=== PATIENT | female | born 1980 | race Caucasian/White ===

== ENCOUNTER 2025-04-19 16:15 | Inpatient (IN) | payer OTHER, SELFPAY ==
[2025-04-19] VITALS (15 sets, daily range): BP systolic 126–160; BP diastolic 68–109; BMI 28.0; BMI 24.9
[2025-04-19 12:17] LABS: Hematocrit 36.1 % (37.0-47.0); Hemoglobin 12.4 g/dL (12.0-16.0); Mean Corp Hgb Conc. 34.3 g/dL (33.0-37.0); Mean Corpuscular Volume 87.2 fL (81.0-99.0); Nucleated Red Blood Cells % 0 %; Platelet Count 274 10^3/uL (130-400); Red Cell Dist. Width 12.0 % (11.5-14.5)
--- NOTE | 2025-04-19 12:30 | ED.GENMED ---
History of Present Illness
General
Chief Complaint: Withdrawal Symptoms
Time Seen by Provider: 04/19/25 12:30
History of Present Illness
History of Present Illness:
PAST MEDICAL HISTORY AND REVIEW OF OLD RECORDS
- Patient has a history of alcohol and heroin abuse. I reviewed records, the patient was seen here after right eye injury in 2012.
Note:
CHIEF COMPLAINT(S)
Chest pain.
HISTORY OF PRESENT ILLNESS
The patient is a 44-year-old female who presented with chest pain. She reported last using alcohol and heroin approximately 24 hours prior to arrival. She has a daily history of both alcohol and heroin use. The patient described her symptoms as
including severe nausea and vomiting, in addition to chest pain. She reported new-onset visual disturbances, describing 'trails of light.' The patient also reported a mild headache, feelings of nervousness, restlessness, and described sensory
changes such as pins and needles. She was unable to accurately identify the current hospital or the correct month, indicating possible disorientation. There is no report of sweating, runny nose, or general achiness.
REVIEW OF SYSTEMS
- Gastrointestinal: Severe nausea, reported vomiting.
- Neurological: Mild headache, described visual disturbances with 'trails of light.'
- Psychological: Nervousness, fidgetiness, restlessness.
- Sensory: Pins and needles sensation.
PHYSICAL EXAM
General: Alert, but appears somewhat uncomfortable
Skin: Warm, dry.
Head: Normocephalic, atraumatic.
Neck: Supple, trachea midline.
Eyes, Ears, Nose, Mouth, and Throat: Pupils are mid dilated
Cardiovascular: Normal peripheral perfusion, No edema. Borderline tachycardic, 2 out of 6 systolic murmur heard diffusely
Respiratory: Respirations are non-labored.
Gastrointestinal: Abdomen nondistended.
Back: Normal range of motion, Normal alignment.
Musculoskeletal: Normal range of motion, normal strength.
Neurological: Alert but cannot tell me what day it is or what hospital she is at
Psychiatric: Cooperative, depressed affect
PLAN
Evaluation and management of withdrawal symptoms by consulting the appropriate team for withdrawal management.
DIFFERENTIAL DIAGNOSIS
The Differential Diagnosis includes, in no particular order and is not limited to:
1. Alcohol withdrawal
2. Opioid withdrawal
3. Myocardial infarction
4. Pneumonia
5. Gastroesophageal reflux disease
6. Panic disorder
7. Peptic ulcer disease
8. Aortic dissection
9. Pulmonary embolism
10. Hypertensive crisis
EKG
- Sinus 74, normal axis, nonspecific ST abnormality, no old to compare, LAE
LABS
- White count and hemoglobin are normal, potassium 3.0, creatinine normal, hCG negative
UPDATE
-SUMMARY OF ENCOUNTER
The patient is a 44-year-old female who presented to the emergency department with chest pain, severe nausea, vomiting, visual disturbances ('trails of light'), pins and needles sensation, restlessness, and disorientation. She has a history of daily
alcohol and heroin use, with her last reported use approximately 24 hours prior to arrival. Given her symptoms and history, there is concern for withdrawal from both alcohol and opioids. Her symptoms and clinical presentation indicate the need for
in-hospital management and withdrawal treatment.
On reassessment, the patient has become more agitated and more tachycardic despite receiving Valium, Belbuca, tizanidine, oxycodone, IV fluids, and Zofran. I discussed case with pharmacy. BCALUIS ANTONIO also evaluated the patient and agrees it would be
safest for patient to be kept in the hospital as opposed to returning to custodial.
ASSESSMENT
The patient is experiencing symptoms consistent with withdrawal from both alcohol and opioids. Comprehensive management in the hospital setting is warranted due to the potential severity and complications associated with dual substance withdrawal.
PLAN
The plan involves in-hospital management of withdrawal symptoms to ensure patient safety. It is being considered whether this management can be done in a specialized facility or requires continued hospital monitoring.
MEDICAL DECISION MAKING
- Number and Complexity of Problems Addressed: Chronic conditions affecting care include alcohol and heroin use. Differential diagnosis includes alcohol withdrawal, opioid withdrawal, and other potential acute conditions such as myocardial
infarction or pulmonary embolism.
- Data:
Category 3:
Discussion of management was held with the consulting team to evaluate the best setting for managing the patients withdrawal symptoms, whether in a specialized facility or the hospital.
-Risk:
Consideration of Admission/Observation: Given the complexity and risk related to the patients presenting complaint, underlying substance use, and symptoms, the decision to keep the patient in the hospital for further withdrawal management is
prioritized. Care significantly affected by Social Determinants of Health includes the patients substance use disorder.
DIAGNOSIS
1. Alcohol withdrawal (F10.239)
2. Opioid withdrawal (F11.23)
Past History
Past History
ED Past Medical History: Other; Negative Asthma, HTN, Hypercholesterolemia or NIDDM
ED Past Surgical History: None
Social History
Tobacco: Non-smoker
Alcohol: Occasional
Drug: Former user (patient on Methadone)
Personal: Single
Living: with family
Phy Exam
Physical Exam
Physical Exam:
See HPI
Course
Orders/Labs/Results
Orders:
Orders
04/19/25
Electrocardiogram (*1) Stat
Reason for Study: Chest Pain
Comment: DONE
04/19/25 11:56
ECG [Electrocardiogram (*1)] Urgent
Reason for Study: Chest Pain
EKG- Treatment ONCE
04/19/25 11:57
Test Result ONCE
04/19/25 12:02
Complete Blood Count/With Diff Urgent
04/19/25 12:37
0.9% Sodium Chloride 1000 ml [Nss] 1,000 ml IV BOLUS
Acetaminophen [Tylenol] 1,000 mg PO NOW STA
Clonidine [Catapres] 0.1 mg PO NOW STA
Ketorolac [Toradol] 15 mg IV NOW STA
Ondansetron Injectable [Zofran] 4 mg IV NOW STA
04/19/25 12:42
Comprehensive Metabolic Panel Urgent
HCG, Serum Qualitative Screen Urgent
Lipase Urgent
Magnesium Urgent
Comment: ADD ON
Troponin I Urgent
04/19/25 12:45
Add On- LAB Urgent
Tests Added?: hcg qual
Urine Drug Abuse Screen Urgent
Buprenorphine HCl [Belbuca] 300 mcg BUCCAL BID
04/19/25 13:17
Add On- LAB Urgent
Tests Added?: magnesium
04/19/25 13:39
Potassium Chloride [KCl] 40 meq 0.9% Sodium Chloride 250 ml [Nss] 250 ml IV NOW
04/19/25 14:13
diazePAM [Valium Injection] 10 mg IV NOW STA
04/19/25 14:48
Oxycodone Controlled Release [Oxycontin (Controlled Release)] 40 mg PO NOW STA
04/19/25 14:53
Tizanidine [Zanaflex] 2 mg PO NOW STA
Abnormal Lab Results
04/19/25 04/19/25
12:02 12:42
RBC 4.14 L 10^6/uL
(4.20-5.40)
Hct 36.1 L %
(37.0-47.0)
Absolute Neuts (auto) 6.7 H 10^3/uL
(1.4-6.5)
Absolute Lymphs (auto) 0.8 L 10^3/uL
(1.2-3.4)
Neutrophils % 85.1 H %
(42.2-75.2)
Lymphocytes % 9.9 L %
(20.5-51.1)
Potassium 3.0 L mmol/L
(3.5-5.1)
BUN 6 L mg/dl
(7-17)
Creatinine 0.5 L mg/dL
(0.6-1.0)
Glucose 106 H mg/dl
(70-99)
Total Protein 6.1 L g/dl
(6.3-8.2)
04/19/25 12:02
04/19/25 12:42
Vital Signs
Pulse: 110
Initial and Last Documented VS:
Initial Vital Signs
Temp Pulse Resp BP Pulse Ox
36.8 C 79 20 142/86 98
04/19/25 11:53 04/19/25 11:53 04/19/25 11:53 04/19/25 11:53 04/19/25 11:53
Last Documented Vital Signs
Temp Pulse Resp BP Pulse Ox
36.8 C 110 27 143/85 98
04/19/25 11:53 04/19/25 15:02 04/19/25 14:00 04/19/25 14:00 04/19/25 14:00
*Pulse Oximetry
SaO2: 98
Oxygen Mode of Delivery: Room air
Patient hypoxic: no
*Critical Care Note
Total Time (30-74mins, 75-104mins- exclusive of procedures): Not Applicable
ED Attending Note
-
Portions of this chart may have been created with voice recognition software.� Occasional wrong word or��sound alike� substitutions may have occurred due to the inherent limitations of voice recognition software.
Discharge Plan
Departure
Patient Disposition: Admit
Date of Disposition: 04/19/25
Time of Disposition: 15:03
Presentation/result/management discussed w/ accepting MD/DO: Hospitalist
Discharge Problem:
Withdrawal syndrome
Prescriptions:
No Action
quetiapine [Seroquel] 25 mg Tablet
25 mg PO DAILY
ascorbic acid (vitamin C) [Vitamin C] 1,000 mg Tablet
1,000 mg PO BID
clonidine HCl 0.1 mg Tablet
0.1 mg PO DIRECTED
Rx Instructions:
0.1mg tid on 04/19/25-04/22/25 then 0.1mg bid on 04/23/25-04/24/25 then 0.5mg bid on04/25/25-04/26/25
ondansetron HCl [Zofran] 4 mg Tablet
4 mg PO TIDPRN PRN (Reason: nausea)
loperamide 2 mg Tablet
2 mg PO TIDPRN PRN (Reason: diarrhea)
thiamine HCl (vitamin B1) 100 mg Tablet
100 mg PO DAILY
Theragen Tablet
1 tab PO DAILY
acetaminophen-codeine 300-30 mg Tablet
1 tab PO DIRECTED
Rx Instructions:
take 2 tablets tid on 04/19/25-04/21/25 then 2 tablets bid on 04/22/25-04/23/25 then 1 tablets bid on 04/24/25-04/25/25
diphenhydramine HCl [Benadryl] 25 mg Capsule
25 mg PO BID
clonazepam 2 mg Tablet
2 mg PO DIRECTED
Rx Instructions:
take 2mg bid on 04/19/25-04/21/25 then 1mg tid on 04/22/25-04/23/25 then 1mg bid on 04/24/25-04/25/25 then 0.5mg bid on 04/26/25-04/27/25 then 0.5mg daily on 04/28/25
folic acid 1 mg Tablet
1 mg PO DAILY
quetiapine [Seroquel] 50 mg Tablet
50 mg PO HS
magnesium oxide 400 mg magnesium Tablet
400 mg PO DAILY
Referrals:
[facility] [Family Provider, General]
Interventions
Interventions:
*Risk Screen - Suicide Last Done: 04/19/25 12:25
*General Assessment Last Done: 04/19/25 12:25
*Neglect/Abuse Screening Last Done: 04/19/25 12:25
*ED- Fall Risk Assessment Last Done: 04/19/25 12:25
*ED COVID-19 Vaccine History Last Done: 04/19/25 12:25
ED- Cardiac Assessment Last Done: 04/19/25 12:30
ED- Neurological Assessment Last Done: 04/19/25 12:30
ED-Psychological Assessment Last Done: 04/19/25 12:30
Discharge Date and Time
Print Language: LATVIAN
[2025-04-19 13:14] LABS: HCG, Serum Qualitative Screen Negative
[2025-04-19 13:15] LABS: ALT (SGPT) 21 U/L (0-35); AST (SGOT) 22 U/L (14-36); Albumin 3.6 g/dl (3.5-5.0); Alkaline Phosphatase 50 U/L (38-126); Blood Urea Nitrogen 6 mg/dl (7-17); Calcium 8.8 mg/dl (8.4-10.2); Carbon Dioxide 27 mmol/L (22-30); Chloride 107 mmol/L (98-107); Estimated Creatinine Clearance 107 ml/min; Glucose 106 mg/dl (70-99); Lipase 77 U/L (23-300); Potassium 3.0 mmol/L (3.5-5.1); Sodium 141 mmol/L (135-145); Total Protein 6.1 g/dl (6.3-8.2); eGFR > 60.00
[2025-04-19] MEDS: BELBUCA 300 MCG BUCCAL ×3 (13:15→21:04)
[2025-04-19 13:18] LABS: Troponin I 0.016 ng/ml
[2025-04-19] MEDS: NSS 1000 IV ×3 (13:20→22:48)
[2025-04-19] MEDS: TORADOL 15 MG IV (13:23)
[2025-04-19] MEDS: ZOFRAN 4 MG IV (13:24)
[2025-04-19] MEDS: CATAPRES 0.1 MG PO (13:26)
[2025-04-19] MEDS: TYLENOL 1000 MG PO (13:27)
--- NOTE | 2025-04-19 13:33 | EDRN ---
Pharmacist called to send potassium IV as ordered.
[2025-04-19 13:34] LABS: Magnesium 1.7 mg/dl (1.6-2.3)
--- NOTE | 2025-04-19 13:45 | EDRN ---
Pt moved to room #18 for better visualization of pt. Pt is in full withdrawal
--- NOTE | 2025-04-19 13:55 | EDRN ---
Luiz from [facility] notified of change of room at this itme.
[2025-04-19] MEDS: KCL 270 MEQ IV (14:02)
[2025-04-19] MEDS: VALIUM INJECTION 10 MG IV (14:50)
[2025-04-19] MEDS: ZANAFLEX 2 MG PO (15:04)
[2025-04-19] MEDS: OXYCONTIN (CONTROLLED RELEASE) 40 MG PO (15:04)
--- NOTE | 2025-04-19 15:05 | HPS.HSE ---
Family Physician
-
Family Physician: Facility [facility]
Chief Complaint
-
withdraw symptoms
History of Present Illness
Patient is a 44-year-old female with past medical history significant for alcohol abuse and heroin abuse who presented to [facility] ED from [facility] for evaluation of chest pain. Patient complains of withdraw symptoms and denies chest pains to this provider.
Patient reports that last use was yesterday of alcohol, fentanyl and meth. She currently is complaining of pain (does not identify a specific location) nausea and of hot and cold fluctuations. Nurse reports patient was with tremor prior to
medication. She is AAO for this provider able to say name, , month and that she currently is in the hospital. She reports use of 1 pint of vodka daily, 1 bag of meth and 6 bags of Fentanyl all last used yesterday.
Medical History
Past Medical History
Past Medical History: Reports Other
Additional Past Medical History:
alcohol abuse
heroin abuse
meth abuse
Past Surgical History: Reports Other
Additional Past Surgical History:
Social History
Tobacco: Smoker (pack per day, with 29 pack year history )
Alcohol: Daily (1 pint of vodka)
Drug: Narcotics (meth 1 bag daily ) and IVDA (6 bag fentanyl daily )
Living: With Family
Family History
Family History: Not pertinent
Allergies / Home Medications
Allergies reflects when Allergies were last updated in [facility].
Home Medications with original date entered in [facility]
Allergy/Medication List:
Allergies
Allergy/AdvReac Type Severity Reaction Status Date / Time
Penicillins Allergy Unknown Verified 02/18/13 20:16
Home Medications
acetaminophen 300 mg-codeine 30 mg tablet 1 tab PO DIRECTED 04/19/25
ascorbic acid (vitamin C) 1,000 mg tablet (Vitamin C) 1,000 mg PO BID 04/19/25
clonazepam 2 mg tablet 2 mg PO DIRECTED 04/19/25
clonidine HCl 0.1 mg tablet 0.1 mg PO DIRECTED 04/19/25
diphenhydramine HCl 25 mg capsule (Benadryl) 25 mg PO BID 04/19/25
folic acid 1 mg tablet 1 mg PO DAILY 04/19/25
loperamide 2 mg tablet 2 mg PO TIDPRN PRN diarrhea 04/19/25
magnesium oxide 400 mg PO DAILY 04/19/25
ondansetron HCl 4 mg tablet 4 mg PO TIDPRN PRN nausea 04/19/25
quetiapine 25 mg tablet (Seroquel) 25 mg PO DAILY 04/19/25
quetiapine 50 mg tablet (Seroquel) 50 mg PO HS 04/19/25
therapeutic multivitamin 1 tab PO DAILY 04/19/25
thiamine HCl (vitamin B1) 100 mg tablet 100 mg PO DAILY 04/19/25
Review of Systems
-
History Source: Patient
Constitutional: Reports Night Sweats, Chills and Other (generalized pain )
EENT: Reports No Symptoms
Respiratory: Reports No Symptoms
Cardiac: Reports Diaphoresis
Abdomen/GI: Reports Nausea
: Reports No Symptoms
Musculoskeletal: Reports No Symptoms
Skin: Reports No Symptoms
Neurological: Reports No Symptoms
Endocrine: Reports No Symptoms
Hematologic/Lymphatic: Reports No Symptoms
Psych: Reports No Symptoms
Physical Exam
Vital Signs
Vital Signs
Temp Pulse Resp BP Pulse Ox
98.3 F 110 27 143/85 98
04/19/25 11:53 04/19/25 15:02 04/19/25 14:00 04/19/25 14:00 04/19/25 14:00
Physical Exam
General: Well Developed, Well Nourished, No Apparent Distress and Obese
HEENT: NormoCephalic, Moist mucous membranes and Atraumatic
Respiratory: Clear and Non Labored Respirations
Cardiac: S1/S2, Regular Rhythm and Murmur; No Rub or Gallop
Breast: Deferred by me
GI: Soft, Non Tender, Non Distended and Normal Bowel Sounds; No Organomegaly
Rectal: Deferred by Provider
Genito-urinary: Deferred by me
Musculoskeletal: No Clubbing, No Cyanosis and No Edema
Skin: Warm and IV/Catheter Site
Neuro: Awake, AO x 3 and Nonfocal/grossly intact
Hematologic/Lymphatic: No Lymphadenopathy
Psych: Other (restlessness)
Laboratory Results
-
04/19/25 12:02
04/19/25 12:42
Laboratory Results
Total Bilirubin 0.7 mg/dl (0.2-1.3) 04/19/25 12:42
AST 22 U/L (14-36) 04/19/25 12:42
ALT 21 U/L (0-35) 04/19/25 12:42
Alkaline Phosphatase 50 U/L (38-126) 04/19/25 12:42
Troponin I 0.016 ng/ml 04/19/25 12:42
Lipase Cancelled 04/19/25 12:45
Data Reviewed
-
Medical Tests (Nuc Med, Echo, EKG etc): Report Reviewed by me (EKG: NORMAL SINUS RHYTHM POSSIBLE LEFT ATRIAL ENLARGEMENT)
Lab Data: Labs Reviewed by me
Impression/Plan
-
IMPRESSION/PLAN:
#opiate withdraw
#alcohol withdraw
EKG: NORMAL SINUS RHYTHM
POSSIBLE LEFT ATRIAL ENLARGEMENT
- Admit to telemetry
- MSAS protocol
- COWS protocol
- supportive care
- monitor electrolytes and replete as indicated
#alcohol abuse
#heroin abuse
Code status: full code
DVT prophylaxis: Lovenox sq
--- NOTE | 2025-04-19 15:25 | EDRN ---
Pt on bedpan attempting urine sample at this time.
--- NOTE | 2025-04-19 15:26 | W.PN.UPDATE ---
Addendum entered and electronically signed by Demetrice Coto MD 04/19/25 16:08:
given patient will be on microdosing protocol with standing oxycodone will closely monitor in IMU
Original Note:
Update Note
Progress Note Update
This is an addendum for H&P written by CODING SUPPORT SPECIALIST Amy Reynoso
I saw and examined the patient.
The CODING SUPPORT SPECIALIST's note was reviewed and I agree with the note.
Comment:
Ms. Suzie Wang is a 44 yo woman with hx alcohol and heroin use presents tot he ER with chest pain, nervousness and restlessness as well as feeling of pins and needles.
Triage VS: T 36.8 C, P 79, RR 20, BP 142/86, SpO2 98%
On exam patient appears uncomfortable, no tremors, she is conversant. Lungs clear, no LE swelling.
LABS: WBC 7.9, Hg 12.4, PLT 274, Na 141, K+ 3.0, CO2 27, BUN 6, Cr 0.5, Glucose 106, liver enzymes WNL, Trop 0.016
HCG negative
MAR: buprenorphine 300mcg clonidine, Valium, Toradol, Zofran, Oxycodone 40mg PO x 1, IV potassium, Zanaflex 2mg PO x 1
Opiate Withdrawal
-admit to telemetry
-awaiting UTox
-microdosing order set with standing low dose buprenorphine, and standing oxycodone with taper
-Clonidine and Zanaflex PRN
-seen by SHALOM, unable to follow up as patient is a prisoner at [facility]
Alcohol Withdrawal
-MSAS protocol
-monitor electrolytes
-IVF
Hypokalemia
-replete and repeat this evening
Remainder of plan per CODING SUPPORT SPECIALIST note
76 minutes spent on patient care
--- NOTE | 2025-04-19 15:36 | EDRN ---
Reuben Reynoso RELAY TESTER In to see pt. Pt voided on bedpan w/ urine sample obtained and sent.
--- NOTE | 2025-04-19 15:39 | EDRN ---
Dr. Coto in room w/ pt at this time.
--- NOTE | 2025-04-19 16:47 | EDRN ---
Report called to Nadia VILLANUEVA in IMU at this time.
[2025-04-19 17:12] LABS: Urine Character Clear (Clear)
[2025-04-19] MEDS: LOVENOX 40 MG SC (17:36)
--- NOTE | 2025-04-19 17:51 | PTCARENOTE ---
Pt from Er with 2 guards R foot shackled to bed. Withdraw from Opiates and alcohol. Pt AAOx3 tremors no teeth. K francisco running in R hand INT.
[2025-04-19] MEDS: ATIVAN 1 MG PO ×2 (18:11→21:23)
[2025-04-19 18:18] LABS: GGTP 14 U/L (12-43)
[2025-04-19] MEDS: THIAMINE INJECTION 200 MG IV (21:04)
[2025-04-19] MEDS: SEROQUEL 50 MG PO (21:04)
[2025-04-19] MEDS: VALIUM INJECTION 5 MG IV (23:24)
[2025-04-20] VITALS (12 sets, daily range): BP systolic 140–168; BP diastolic 85–121; BMI 24.9
[2025-04-20] MEDS: BELBUCA 300 MCG BUCCAL ×4 (00:18→11:49)
[2025-04-20] MEDS: VALIUM INJECTION 5 MG IV ×2 (00:18→02:45)
[2025-04-20] MEDS: OXYCONTIN (CONTROLLED RELEASE) 40 MG PO ×3 (00:18→15:06)
--- NOTE | 2025-04-20 00:49 | PTCARENOTE ---
Addendum entered by Buck Kim RN 04/20/25 02:36:
K+ 3.1; repleted with po potassium elixir per SUPPLY CLERK order.
Original Note:
Patient had about 2 minutes of Vtach on monitor. Pt stated she did have some pain in her chest during that time and also was yelling to the pain from the BP cuff inflating. Difficult to assess d/t withdrawal and lack of awareness/ disorientation to
reality. Encouraged pt to cough. Pt converted back to NSR/ST spontaneously. SUPPLY CLERK Hephziba aware and at bedside. Labs drawn and sent. EKG done.
[2025-04-20 01:07] LABS: Hematocrit 31.0 % (37.0-47.0); Hemoglobin 10.8 g/dL (12.0-16.0); Mean Corp Hgb Conc. 34.8 g/dL (33.0-37.0); Mean Corpuscular Volume 88.6 fL (81.0-99.0); Platelet Count 239 10^3/uL (130-400); Red Cell Dist. Width 12.4 % (11.5-14.5)
[2025-04-20 01:31] LABS: ALT (SGPT) 19 U/L (0-35); AST (SGOT) 22 U/L (14-36); Albumin 3.3 g/dl (3.5-5.0); Alkaline Phosphatase 46 U/L (38-126); Blood Urea Nitrogen 5 mg/dl (7-17); Calcium 7.9 mg/dl (8.4-10.2); Carbon Dioxide 27 mmol/L (22-30); Chloride 112 mmol/L (98-107); Estimated Creatinine Clearance 93 ml/min; Glucose 88 mg/dl (70-99); Magnesium 1.9 mg/dl (1.6-2.3); Potassium 3.1 mmol/L (3.5-5.1); Sodium 144 mmol/L (135-145); Total Protein 5.6 g/dl (6.3-8.2); eGFR > 60.00
[2025-04-20 01:43] LABS: Troponin I 0.024 ng/ml
--- NOTE | 2025-04-20 01:43 | W.PN.UPDATE ---
Update Note
Progress Note Update
patient had 2 mnts of V tach. Patient seen and evaluated, had just received Valium 5mg IV. stated she was having chest pain pointed to mid chest. HR 115 BP 146/89 24 98%
labs ordered. EKG with Sinus Tachycardia
Labs ordered K 3.1 will replete with elixir. patient refusing IV KCL
corrected calcium 8.1
Trop 0.024
patient resting in bed,no new complaints at present.
labs in AM.
[2025-04-20] MEDS: KCL ELIXIR 40 MEQ PO (01:48)
[2025-04-20] MEDS: VALIUM INJECTION 10 MG IV ×4 (04:36→15:06)
[2025-04-20 05:00] LABS: Hematocrit 33.8 % (37.0-47.0); Hemoglobin 11.4 g/dL (12.0-16.0); Mean Corp Hgb Conc. 33.7 g/dL (33.0-37.0); Mean Corpuscular Volume 89.7 fL (81.0-99.0); Platelet Count 247 10^3/uL (130-400); Red Cell Dist. Width 12.1 % (11.5-14.5)
[2025-04-20 05:31] LABS: Blood Urea Nitrogen 4 mg/dl (7-17); Calcium 8.2 mg/dl (8.4-10.2); Carbon Dioxide 26 mmol/L (22-30); Chloride 111 mmol/L (98-107); Estimated Creatinine Clearance 93 ml/min; Glucose 102 mg/dl (70-99); Potassium 3.6 mmol/L (3.5-5.1); Sodium 144 mmol/L (135-145); eGFR > 60.00
--- NOTE | 2025-04-20 05:32 | PTCARENOTE ---
Patient had a large brown emesis with pieces of what appears to be red pepper skin and green spinach. ABISAI Alatorre made aware. RN cleaned up as much as possible. Housekeeping called for cleaning. Patient cleansed, all linens changed. Pt cursing at
staff. Yelling 'get the fuck off of me you fucking bitch. This is un-fucking believable. I feel neglected' Education and support provided. Pt resistant to care and staff.
Alf guards at bedside, right ankle shackled to bedside managed by guards.
--- NOTE | 2025-04-20 07:00 | PTCARENOTE ---
Pt awake screaming, cursing, thrashing in bed MSAS 11 Valium given as ordered. all meds given Pt still screaming . Gaurds at bedside, shackled to bed
[2025-04-20] MEDS: SEROQUEL 25 MG PO (07:32)
[2025-04-20] MEDS: FOLVITE 1 MG PO (07:32)
--- NOTE | 2025-04-20 07:50 | PTCARENOTE ---
Pt continues to curse and scream . Given bed clemente voided 200 given gingerale and a warm blanket
[2025-04-20] MEDS: THIAMINE INJECTION 200 MG IV ×2 (08:00→22:01)
--- NOTE | 2025-04-20 09:30 | W.PN.HOSP.TC ---
Today's Communication/Plan
-
see note
Assessment / Plan
Assessment / Plan
1. Acute toxic encephalopathy
-Intoxicated from opiate/cocaine/meth/alcohol currently
- Last use reportedly yesterday at some point although unable to personally verify with patient
- No brain imaging available and will be warranted if patient mentation does not improve after not under substance influence
- Continue supportive care at this point
2. Multiple substance use
- Urine drug screen positive for fentanyl/cocaine/meth
- Will need to be monitored for withdrawal from this substances
- Currently started on microdosing with buprenorophine/oxycodone COWS protocol for opiate withdrawal. COWS score ranging 10-20 in last few checks
- Patient on Zanaflex/clonidine/Valium as well
- Patient will require ICU transfer with Precedex drip if started to having significant agitation and unable to be taken care of at IMU level
- Patient will go back to correctional facility after medical stabilization, will require [facility] evaluation if patient released from correctional facility for further
3. Monomorphic VT
- Patient had episode of monomorphic VT running approximately 2-minute early in the morning today
- Patient was complaining chest pain at admission
- Check proBNP/magnesium/phosphorus level. Maintain potassium above 4 and magnesium above 2
- proBNP and echocardiogram check ordered
- Cardiology evaluation requested as well
- Giving empiric 2 g of magnesium
4. Chest pain
- No ST segment changes
- Troponin 2 sets remain negative
5. Normocytic anemia
- Presumed chronic, no previous labs to compare. monitor
DVT PPX - lovenox
Full code
Total time spent : 55 mins
I personally saw and examined the patient.
I have reviewed all diagnostic interpretations and treatment plans as written.
Time includes patient management by me, time spent at the patients bedside, time to review lab and imaging results, discussing patient care, documentation in the medical record, and time spent with the family or caregiver and discussing care plan
with RN/Consultants.
Anticipated Discharge: > 48 hours
Subjective/Interval History
-
Date of Service: April 20, 2025
Patient remains confused/delirious
Giving answers although at times unable to validate info
Complains of ongoing chest pain
Had episode of 2-minute of monomorphic V. tach in the night
Not hypoxic
No other acute issues reported
Objective Data
-
Labs:
Laboratory Results
04/20/25 04/20/25
00:43 04:48
WBC 9.6 9.7
Hgb 10.8 L 11.4 L
Hct 31.0 L 33.8 L
Plt Count 239 247
Sodium 144 144
Potassium 3.1 L 3.6
Chloride 112 H 111 H
Carbon Dioxide 27 26
BUN 5 L 4 L
Creatinine 0.5 L 0.5 L
Glucose 88 102 H
Calcium 7.9 L 8.2 L
Total Bilirubin 0.6
AST 22
ALT 19
Alkaline Phosphatase 46
Vital Signs:
Vital Signs
Temp Pulse Resp BP Pulse Ox
99.3 F 109 18 149/121 97
04/20/25 08:14 04/20/25 07:30 04/20/25 07:30 04/20/25 06:00 04/19/25 21:45
I&O
04/19/25 04/20/25 04/21/25
06:59 06:59 06:59
Intake Total 240 / 240
Output Total 700 / 700 200 / 200
Balance -460 / -460 -200 / -200
Review of Systems
-
Unable to obtain full review of systems at this time due to: Acuity
Physical Exam
-
General: Obese
HEENT: Negative Oxygen
Respiratory: Rhonchi
Cardiac: S1/S2, Murmur (Systolic ejection murmur) and Tachycardic; Negative Rub
GI: Soft, Nontender and Nondistended
Musculoskeletal: No Edema
Neuro: Awake; Negative Alert or Oriented
Psych: Confused and Agitated
[2025-04-20] MEDS: MAGNESIUM SULFATE 50 IV (09:55)
[2025-04-20 10:06] LABS: Magnesium 1.9 mg/dl (1.6-2.3)
[2025-04-20] MEDS: ATIVAN 1 MG PO (10:36)
--- NOTE | 2025-04-20 10:46 | PTCARENOTE ---
Pt screaming , Msas 11 given meds as ordered. Pt states iv is very painful IV team TT to see pt.
--- NOTE | 2025-04-20 11:39 | CM ---
Patient seen at bedside in IMU. Patient guards at bedside. Patient with consult for drug and alcohol resources. Patient will be returning to [facility] when medically appropriate and will be able to receive appropriate resources at that time. CM will
update [facility] re; plan. CM will continue to follow for discharge planning needs.
Plan; return to [facility]; follow up with resources re alcohol and drug treatment
[2025-04-20] MEDS: NSS 1000 IV (11:48)
--- NOTE | 2025-04-20 14:24 | PTCARENOTE ---
Pt asked for pain med, when in room pt is sleeping pain med returned
--- NOTE | 2025-04-20 14:29 | PTCARENOTE ---
Pt voided in her water cup
[2025-04-20] MEDS: CATAPRES 0.1 MG PO (15:06)
[2025-04-20] MEDS: CORGARD 10 MG PO (15:19)
--- NOTE | 2025-04-20 15:41 | CON.CAR ---
Consultation
Consultation Request
Date/Time Consultation Requested: 04/20/25, 930am
Date/Time Consultation Performed: 04/20/25, 11am
Requesting Provider: Christiano
Performing Provider: Guy
Reason for Consultation: VT
Medical History
-
Chief Complaint: chest pain
History of Present Illness:
44 yo female with PMH of polysubstance abuse is admitted with acute withdraw. We are consulted for chest pain, VT. She is currently chest pain free.
Past Medical History
Past Medical History: Other (polysubstance abuse)
Past Surgical History: None
Social History
Tobacco: Smoker
Alcohol: Chronic Alcoholic
Drug: Cocaine, Narcotics and IVDA
Family History
Family History: Other (unknown)
Allergies / Home Medications
Allergy/AdvReac Type Severity Reaction Status Date / Time
Penicillins Allergy Unknown Verified 02/18/13 20:16
�Medication �Instructions �Recorded �Confirmed �Type
acetaminophen 300 mg-codeine 30 mg 1 tab PO DIRECTED Pain 04/19/25 04/19/25 History
tablet
ascorbic acid (vitamin C) 1,000 mg 1,000 mg PO BID Supplement 04/19/25 04/19/25 History
tablet (Vitamin C)
clonazepam 2 mg tablet 2 mg PO DIRECTED Mental 04/19/25 04/19/25 History
Health/Anxiety
clonidine HCl 0.1 mg tablet 0.1 mg PO DIRECTED 04/19/25 04/19/25 History
diphenhydramine HCl 25 mg capsule 25 mg PO BID 04/19/25 04/19/25 History
(Benadryl)
folic acid 1 mg tablet 1 mg PO DAILY Supplement 04/19/25 04/19/25 History
loperamide 2 mg tablet 2 mg PO TIDPRN PRN diarrhea 04/19/25 04/19/25 History
magnesium oxide 400 mg PO DAILY Supplement 04/19/25 04/19/25 History
ondansetron HCl 4 mg tablet 4 mg PO TIDPRN PRN nausea 04/19/25 04/19/25 History
quetiapine 25 mg tablet (Seroquel) 25 mg PO DAILY Mental 04/19/25 04/19/25 History
Health/Anxiety
quetiapine 50 mg tablet (Seroquel) 50 mg PO HS Mental Health/Anxiety 04/19/25 04/19/25 History
therapeutic multivitamin 1 tab PO DAILY Supplement 04/19/25 04/19/25 History
thiamine HCl (vitamin B1) 100 mg 100 mg PO DAILY Supplement 04/19/25 04/19/25 History
tablet
buprenorphine HCl 8 mg sublingual 8 mg sublingual BID Pain 04/20/25 04/20/25 History
tablet
Review of Systems
-
Unable to obtain full review of systems at this time due to: Other (intoxication)
History Source: Patient
Cardiac: Chest Pain
Physical Exam
Vital Signs
Temp Pulse Resp BP Pulse Ox
99.7 F 96 25 140/97 97
04/20/25 15:00 04/20/25 15:06 04/20/25 15:00 04/20/25 15:06 04/19/25 21:45
Lab Results
04/20/25 04:48
04/20/25 04:48
Troponin I 0.024 ng/ml 04/20/25 00:55
Uwy-Z-Kuessjqbsbi Pept 2380 pg/ml 04/20/25 00:55
Physical Exam
Respiratory: Clear and Non Labored Respirations
Cardiac: S1/S2 (normal), Regular Rhythm (tachycardic), Murmur (none), Peripheral Edema (none) and JVD (none)
Musculoskeletal: No Clubbing, No Cyanosis and No Edema
Skin: Warm and Dry
Neuro: Awake
Psych: Agitated
Impression / Plan
-
44 yo female with PMH of polysubstance abuse is admitted with acute withdraw. We are consulted for chest pain, VT.
# VT: in setting of polysubstance abuse and withdraw
-2 minutes
-threat to life, monitor on tele
-replete lytes
-check echo
-start nadolol
# Polysubstance abuse, withdraw
-severe, requiring hospitalization and med mgmt
Data Reviewed
-
EKG: Tracing Personally Visualized and interpreted (NSR) and Other (Tele: 2 min of monomorphic VT)
Labs: Labs Reviewed by me
[2025-04-20] MEDS: SUBUTEX 2 MG SL ×2 (17:52→21:53)
[2025-04-20] MEDS: ROXICODONE 20 MG PO ×2 (17:52→21:52)
[2025-04-20] MEDS: LOVENOX 40 MG SC (17:53)
--- NOTE | 2025-04-20 18:12 | PTCARENOTE ---
Ppt stated she had 9/10 pain in her body given pain med then pt wanted more Valium. Pt is drowsy no Valium given. Pt had BM. Remains shackled to bed with 2 correction officers at bedside
[2025-04-20] MEDS: ZANAFLEX 2 MG PO (22:00)
[2025-04-20] MEDS: ZOFRAN 4 MG IV (22:00)
[2025-04-20] MEDS: SEROQUEL 50 MG PO (22:00)
[2025-04-20] MEDS: TYLENOL 650 MG PO (22:00)
[2025-04-21] VITALS (14 sets, daily range): BP systolic 130–169; BP diastolic 87–123
[2025-04-21] MEDS: NSS IV (00:10)
[2025-04-21] MEDS: CATAPRES 0.1 MG PO ×3 (00:45→17:02)
[2025-04-21] MEDS: OXYCONTIN (CONTROLLED RELEASE) 40 MG PO ×2 (00:45→08:22)
[2025-04-21 04:38] LABS: Hematocrit 34.0 % (37.0-47.0); Hemoglobin 11.6 g/dL (12.0-16.0); Mean Corp Hgb Conc. 34.1 g/dL (33.0-37.0); Mean Corpuscular Volume 89.5 fL (81.0-99.0); Platelet Count 234 10^3/uL (130-400); Red Cell Dist. Width 12.5 % (11.5-14.5)
--- NOTE | 2025-04-21 04:48 | PTCARENOTE ---
Patient has been cooperative overnight, no hallucinations, no yelling out, no agitation present. MSAS ranging from 0-5. COWS scores 6-13. Requested PRN oxycodone for generalized pain. Drowsy intermittently. PRN Tylenol provided for low grade temp.
Warm blankets removed. PRN Tizanidine provided for restlessness. LFA PIV found to be removed. New PIV placed by VAT and secured with kerlix wrap. No gi/gu complaints; voiding via bedpan large amounts of urine frequently. No emesis. Reports some
nausea; PRN zofran provided. NSR/ST on telemetry, no VT. IVF order discontinued. Correctional facility guards at bedside. Utilizes call garcia appropriately.
[2025-04-21 05:03] LABS: ALT (SGPT) 19 U/L (0-35); AST (SGOT) 22 U/L (14-36); Albumin 3.5 g/dl (3.5-5.0); Alkaline Phosphatase 44 U/L (38-126); Blood Urea Nitrogen 5 mg/dl (7-17); Calcium 8.3 mg/dl (8.4-10.2); Carbon Dioxide 30 mmol/L (22-30); Chloride 106 mmol/L (98-107); Estimated Creatinine Clearance 93 ml/min; Glucose 120 mg/dl (70-99); Magnesium 2.0 mg/dl (1.6-2.3); Potassium 3.4 mmol/L (3.5-5.1); Sodium 140 mmol/L (135-145); Total Protein 5.9 g/dl (6.3-8.2); eGFR > 60.00
[2025-04-21] MEDS: FOLVITE 1 MG PO (08:20)
[2025-04-21] MEDS: SUBUTEX 2 MG SL ×2 (08:21→13:37)
[2025-04-21] MEDS: SEROQUEL 25 MG PO (08:21)
[2025-04-21] MEDS: CORGARD 10 MG PO ×2 (08:21→11:39)
[2025-04-21] MEDS: THIAMINE INJECTION 200 MG IV ×2 (08:22→21:01)
--- NOTE | 2025-04-21 10:07 | W.PN.CD ---
Today's Communication / Plan
-
increase nadolol to 20mg daily
abnormal aortic valve with calcified echodensity: cannot r/o calcified vegetation
-discussed with hospitalist: to send off Bcx, and call us back if become positive
Impression / Plan
-
44 yo female with PMH of polysubstance abuse is admitted with acute withdraw. We are consulted for chest pain, VT.
# VT: in setting of polysubstance abuse and withdraw
-2 minutes on 04/20
-replete lytes
-echo with normal LVEF
-med mgmt
-increase nadolol to 20mg daily
# Abnormal aortic valve
-mild , mild/moderate AR
-calcified echodensity: cannot r/o calcified vegetation
-discussed with hospitalist: to send off Bcx, and call us back if become positive
# Polysubstance abuse, withdraw, acute
-per hospitalist
Physical Exam
Vital Signs/Labs
Vital Signs
Temp Pulse Resp BP Pulse Ox
98.0 F 86 21 169/98 95
04/21/25 07:55 04/21/25 08:21 04/21/25 06:30 04/21/25 08:21 04/21/25 04:47
04/20/25 04/21/25 04/22/25
06:59 06:59 06:59
Actual Weight 61.8 kg
04/21/25 04:12
04/21/25 04:12
PT Cancelled 04/19/25 16:06
INR Cancelled 04/19/25 16:06
APTT Cancelled 04/19/25 16:06
Magnesium 2.0 mg/dl (1.6-2.3) 04/21/25 04:12
04/20/25
00:55
Leb-H-Hlakijvvfix Pept 2380
LAB Results
0804/19/25 04/20/25
12:02 12:42 00:55
Troponin I Cancelled 0.016 0.024
Physical Exam
Constitutional: No acute distress
EENT: Moist mucous membranes
Cardiovascular: Rhythm & rate is regular, Pedal edema is absent, JVD pressure is normal and Systolic murmur present
Respiratory: Respiratory effort normal and Lungs clear to auscul.
Data Reviewed
-
Date of Service: April 21, 2025
EKG: Other (Tele: sinus, no arrhythmia)
X-Ray/CT/US/MRI/NUC/PET: Report Reviewed by me
Labs: Labs Reviewed by me
--- NOTE | 2025-04-21 10:08 | PN.CDI ---
CDI
- -
CDI:
Physician Documentation Request
Admit Date: 04/19/25 16:15
Dear Doctor Christiano,
Please review the following and provide your response in the progress notes.
Clinical Indicators:
The diagnosis of alcohol withdrawal was documented on 04/19 H&P, but is not consistently noted in subsequent documentation.
- 04/19 H&P 'alcohol withdraw...MSAS protocol'
- MSAS 3-13
- 1mg lorazepam given x 3
- 5mg diazepam x 3
- 10mg diazepam x 5
Please clarify the following:
____ - Alcohol withdrawal was present on admission and is now resolved.
____ - Alcohol withdrawal was present on admission and is still being monitored, evaluated or treated
____ - Alcohol withdrawal was ruled out
____ - Other
Use of terms such as suspected, likely, concern for, or probable (associated with a specific diagnosis that is being evaluated, monitored, or treated as if it exists) are acceptable and can be coded in the inpatient setting, when documented at the
time of discharge.
Thank you,
Chandana Carlton RN
CDI Specialist
Please use your independent medical judgment in providing your response.
[2025-04-21] MEDS: KCL 40 MEQ PO (11:39)
--- NOTE | 2025-04-21 15:00 | PTCARENOTE ---
Patient better today. See MSAS and COWS documentation. Patient AAOx3, tired, using call garcia appropriately. NSR-NSB. VSS. Guards at bedside. Continuing to closely monitor.
--- NOTE | 2025-04-21 15:12 | W.PN.HOSP.TC ---
Addendum entered and electronically signed by Andrews Alvarado MD 04/21/25 15:17:
Alcohol withdrawal is possibility and being monitored
Original Note:
Today's Communication/Plan
-
Monitor current treatment for mulitsubstance withdrawal
Replace potassium
Continue telemetry monitoring
Assessment / Plan
Assessment / Plan
1. Acute toxic encephalopathy - improving
-Intoxicated from opiate/cocaine/meth/alcohol currently
- Last use reportedly christine before ER visit at some point although unable to personally verify with patient
- No brain imaging available and will be warranted if patient mentation does not improve after not under substance influence
- Continue supportive care at this point
2. Multiple substance use
- Urine drug screen positive for fentanyl/cocaine/meth
- Will need to be monitored for withdrawal from this substances
- Currently started on microdosing with buprenorphine/oxycodone COWS protocol for opiate withdrawal. COWS score ranging 10-20 in last few checks
- Patient on Zanaflex/clonidine/Valium as well
- Patient will require ICU transfer with Precedex drip if started to having significant agitation and unable to be taken care of at IMU level
- Patient will go back to correctional facility after medical stabilization, will require BCARES evaluation if patient released from correctional facility for further
3. Monomorphic VT
- Patient had episode of monomorphic VT running approximately 2-minute early in the morning today
- Patient was complaining chest pain at admission
- Check proBNP/magnesium/phosphorus level. Maintain potassium above 4 and magnesium above 2
- Echocardiogram ruled out any heart failure. Questionable valvular changes on aortic valve. Discussed with cardiology and recommended to rule out bacteremia. Blood culture ordered
- Patient started on nadolol and maintained on it .
- Monitor on telemetry
4. Chest pain
- No ST segment changes
- Troponin 2 sets remain negative
5. Normocytic anemia
- Presumed chronic, no previous labs to compare. monitor
6. Hypertensive urgency
- Blood pressure is coming down although remains elevated.
- started o na
DVT PPX - lovenox
Full code
Anticipated Discharge: 24 - 48 hours
Subjective/Interval History
-
Date of Service: April 21, 2025
Patient mentation better today
Coherent and able to communicate appropriately
Objective Data
-
Labs:
Laboratory Results
04/21/25
04:12
WBC 12.4 H
Hgb 11.6 L
Hct 34.0 L
Plt Count 234
Sodium 140
Potassium 3.4 L
Chloride 106
Carbon Dioxide 30
BUN 5 L
Creatinine 0.5 L
Glucose 120 H
Calcium 8.3 L
Total Bilirubin 0.7
AST 22
ALT 19
Alkaline Phosphatase 44
Vital Signs:
Vital Signs
Temp Pulse Resp BP Pulse Ox
99.6 F 72 21 167/93 98
04/21/25 15:00 04/21/25 14:30 04/21/25 14:30 04/21/25 14:00 04/21/25 08:00
I&O
04/20/25 04/21/25 04/22/25
06:59 06:59 06:59
Intake Total 240 / 240 50 / 50
Output Total 700 / 700 400 / 400
Balance -460 / -460 -350 / -350
Review of Systems
-
Respiratory: Reports No Symptoms
Cardiac: Reports No Symptoms
Abdomen/GI: Reports No Symptoms
Physical Exam
-
General: Negative Appears in Distress
HEENT: Negative Oxygen
Cardiac: Regular Rhythm, S1/S2 and Tachycardic
GI: Soft, Nontender and Nondistended
Neuro: Awake, Alert, Oriented and No Motor Deficits
--- NOTE | 2025-04-21 16:22 | CM ---
Patient for possible return to [facility] tomorrow. call to [facility] [phone]/ fax [phone]. CM will continue to follow for discharge planning needs.
Plan; return to [facility] possibly tomorrow pending physician assessment
[2025-04-21] MEDS: OXYCONTIN (CONTROLLED RELEASE) 20 MG PO (17:02)
[2025-04-21] MEDS: ZOFRAN 4 MG IV (17:40)
[2025-04-21] MEDS: SUBUTEX 4 MG SL ×2 (17:41→21:00)
[2025-04-21] MEDS: LOVENOX 40 MG SC (17:41)
[2025-04-21] MEDS: SEROQUEL 50 MG PO (21:01)
[2025-04-21] MEDS: FLUSH (NSS) 2 FLUSH IV (21:01)
[2025-04-22] VITALS (9 sets, daily range): BP systolic 124–169; BP diastolic 82–107
[2025-04-22] MEDS: OXYCONTIN (CONTROLLED RELEASE) 20 MG PO ×2 (00:53→08:50)
[2025-04-22] MEDS: CATAPRES 0.1 MG PO ×2 (00:54→08:49)
[2025-04-22 04:23] LABS: Hematocrit 35.6 % (37.0-47.0); Hemoglobin 12.3 g/dL (12.0-16.0); Mean Corp Hgb Conc. 34.6 g/dL (33.0-37.0); Mean Corpuscular Volume 88.8 fL (81.0-99.0); Platelet Count 222 10^3/uL (130-400); Red Cell Dist. Width 12.5 % (11.5-14.5)
[2025-04-22 04:48] LABS: ALT (SGPT) 17 U/L (0-35); AST (SGOT) 19 U/L (14-36); Albumin 3.4 g/dl (3.5-5.0); Alkaline Phosphatase 42 U/L (38-126); Blood Urea Nitrogen 9 mg/dl (7-17); Calcium 8.4 mg/dl (8.4-10.2); Carbon Dioxide 29 mmol/L (22-30); Chloride 108 mmol/L (98-107); Estimated Creatinine Clearance 93 ml/min; Glucose 107 mg/dl (70-99); Magnesium 2.0 mg/dl (1.6-2.3); Potassium 3.6 mmol/L (3.5-5.1); Sodium 140 mmol/L (135-145); Total Protein 5.8 g/dl (6.3-8.2); eGFR > 60.00
--- NOTE | 2025-04-22 05:55 | PTCARENOTE ---
Pt rested well overnight. No anxiety. Remained calmed and slept well. Denies pain currently. Refused HS care. MSAS 1-4 throughout shift. VSS. Febrile 100.5 at beginning of shift but afebrile without intervention since. Using bedpan to void. Guards
remain with pt since forensic pt. Left ankle shackled to bed. Pt able to turn self. No change from previous assessment. Call garcia remains within reach. Will continue to monitor.
[2025-04-22] MEDS: CORGARD 20 MG PO (08:49)
[2025-04-22] MEDS: SUBUTEX 4 MG SL ×2 (08:49→12:46)
[2025-04-22] MEDS: FOLVITE 1 MG PO (08:50)
[2025-04-22] MEDS: SEROQUEL 25 MG PO (08:50)
[2025-04-22] MEDS: THIAMINE INJECTION 200 MG IV (08:50)
--- NOTE | 2025-04-22 08:53 | CM ---
chart reviewed
patient from [facility]
PLAN: Return to [facility] when stable
call to [facility] [phone]/ fax [phone]
[facility] to transport
--- NOTE | 2025-04-22 09:27 | W.PN.HOSP.TC ---
Today's Communication/Plan
-
Discharge back to penitentiary
Assessment / Plan
Assessment / Plan
1. Acute toxic encephalopathy Resolved
-Intoxicated from opiate/cocaine/meth/alcohol currently
- Last use reportedly christine before ER visit at some point although unable to personally verify with patient
- Patient mentation is back to normal.
2. Multiple substance use
- Urine drug screen positive for fentanyl/cocaine/meth
- Will need to be monitored for withdrawal from this substances
- On microdosing with buprenorphine/oxycodone COWS protocol for opiate withdrawal. Patient is out of opiate withdrawal at this point.
- Patient on Zanaflex/clonidine/Valium as well
- Recommended patient to seek drug rehab/help with substance use once patient is released from correctional facility.
3. Monomorphic VT
- Patient had episode of monomorphic VT running approximately 2-minute early in the morning today
- Patient was complaining chest pain at admission
- Magnesium/phosphorus within normal limit
- Echocardiogram ruled out any heart failure. Questionable valvular changes on aortic valve. Blood culture result pending. Nothing to support ongoing bacteremia. Will help to request patient for to be readmitted if tested positive.
- Patient started on nadolol and maintained on it .
- Monitor on telemetry
4. Chest pain - resolved
- No ST segment changes
- Troponin 2 sets remain negative
5. Normocytic anemia
- Presumed chronic, no previous labs to compare. monitor
6. Hypertensive urgency - resolved
- Blood pressure is improved with nadolol.
DVT PPX - lovenox
Full code
More than 30 minutes spent in discharge including
Final examination of the patient
Summarizing hospital stay
Instructions for continuing care to all relevant caregivers
Preparation of discharge records, prescriptions, and referral forms
Total time spent (in minutes): 39mins
Anticipated Discharge: Today
Subjective/Interval History
-
Date of Service: April 22, 2025
Feeling better
Vitals remained stable
Some abdominal discomfort
No nausea or vomiting
No other issues
Objective Data
-
Labs:
Laboratory Results
04/22/25
03:57
WBC 8.6
Hgb 12.3
Hct 35.6 L
Plt Count 222
Sodium 140
Potassium 3.6
Chloride 108 H
Carbon Dioxide 29
BUN 9
Creatinine 0.6
Glucose 107 H
Calcium 8.4
Total Bilirubin 0.4
AST 19
ALT 17
Alkaline Phosphatase 42
Vital Signs:
Vital Signs
Temp Pulse Resp BP Pulse Ox
98.0 F 84 19 147/92 96
04/22/25 08:03 04/22/25 08:49 04/22/25 05:15 04/22/25 08:49 04/21/25 21:12
I&O
04/21/25 04/22/25 04/23/25
06:59 06:59 06:59
Intake Total 50 / 50 440 / 440
Output Total 400 / 400
Balance -350 / -350 440 / 440
Review of Systems
-
Respiratory: Reports No Symptoms
Cardiac: Reports No Symptoms
Abdomen/GI: Reports No Symptoms
Physical Exam
-
General: Negative Appears in Distress
HEENT: Negative Oxygen
Cardiac: Regular Rhythm, S1/S2 and Tachycardic
GI: Soft, Nontender and Nondistended
Neuro: Awake, Alert, Oriented and No Motor Deficits
--- NOTE | 2025-04-22 09:33 | W.DCSUMMARY ---
Discharge Summary
Discharge Data
Date of Admission: 04/19/25
Date of Discharge: 04/22/25
-
Pending Results: No
Hospital Course
Discharging Physician : Dr Andrews Alvarado
Disposition : [facility]
Primary care physician : [facility] physician
Principal Discharge diagnosis :
Acute toxic encephalopathy
Multiple substance abuse
Episode of monomorphic ventricular tachycardia lasting 2-minutes
Uncontrolled hypertension
Chest pain
Chronic Discharge diagnosis :
Normocytic anemia
Hospital Course :
Patient is a 44-year-old female with known mentioned past medical history was brought in from correctional facility after patient was having new onset chest pain. Patient has been using multiple substance apparently and use was day before. Urine
drug screen was positive for fentanyl/cocaine/meth . Patient also reported refusing alcohol. Patient was admitted in the hospital for further monitoring of acute toxic encephalopathy from multisubstance use. There was concern of patient possibly
having withdrawal eventually and patient was started on opioid withdrawal and alcohol withdrawal protocol. EKG did not show any changes. Troponin were negative. Patient noted to having 2 minutes run of monomorphic VT on telemetry. Cardiology
involved in care and patient underwent echocardiogram which showed preserved ejection fraction. Patient has some aortic valvular thickness noted and there was question of possible subacute endocarditis. Blood cultures were collected and were
negative. Patient was started on nadolol for heart rate control. After improvement of patient encephalopathy patient was discharged back to correctional facility.
Important imaging findings :
None
Procedure findings :
None
Discharge Plan
-
Patient Disposition: [facility]
Discharge Diagnosis/Procedures: Multi-substances abuse, Alcohol withdrawal
Condition: Fair
Diet: Regular
Activity: As tolerated
Driving Restrictions: No driving
Bathing Restrictions: OK to Shower
Referrals:
[facility] [Family Provider, General] - in one week
Prescriptions:
New
clonidine HCl 0.1 mg Tablet
0.1 mg PO Q8 Qty: 30 0RF
clonidine HCl 0.1 mg Tablet
0.1 mg PO Q6HPRN PRN (Reason: restlessness,agitation,anxiety) Qty: 30 0RF
nadolol 20 mg Tablet
20 mg PO DAILY Qty: 30 0RF
Continued
quetiapine [Seroquel] 25 mg Tablet
25 mg PO DAILY
ondansetron HCl 4 mg Tablet
4 mg PO TIDPRN PRN (Reason: nausea)
loperamide 2 mg Tablet
2 mg PO TIDPRN PRN (Reason: diarrhea)
thiamine HCl (vitamin B1) 100 mg Tablet
100 mg PO DAILY
diphenhydramine HCl [Benadryl] 25 mg Capsule
25 mg PO BID
folic acid 1 mg Tablet
1 mg PO DAILY
quetiapine [Seroquel] 50 mg Tablet
50 mg PO HS
magnesium oxide 400 mg magnesium Tablet
400 mg PO DAILY
buprenorphine HCl 8 mg Tablet, Sublingual
8 mg SUBLINGUAL BID
Discontinued
ascorbic acid (vitamin C) [Vitamin C] 1,000 mg Tablet
1,000 mg PO BID
clonidine HCl 0.1 mg Tablet
0.1 mg PO DIRECTED
Rx Instructions:
0.1mg tid on 04/19/25-04/22/25 then 0.1mg bid on 04/23/25-04/24/25 then 0.5mg bid on04/25/25-04/26/25
Theragen Tablet
1 tab PO DAILY
acetaminophen-codeine 300-30 mg Tablet
1 tab PO DIRECTED
Rx Instructions:
take 2 tablets tid on 04/19/25-04/21/25 then 2 tablets bid on 04/22/25-04/23/25 then 1 tablets bid on 04/24/25-04/25/25
clonazepam 2 mg Tablet
2 mg PO DIRECTED
Rx Instructions:
take 2mg bid on 04/19/25-04/21/25 then 1mg tid on 04/22/25-04/23/25 then 1mg bid on 04/24/25-04/25/25 then 0.5mg bid on 04/26/25-04/27/25 then 0.5mg daily on 04/28/25
Discharge Orders:
Discharge Patient (As Directed); Ordered 04/22/25
Ordered By: Andrews Alvarado
Discharge Date and Time
Discharge Date/Time: 04/22/25 13:44
Print Language: YI
--- NOTE | 2025-04-22 13:02 | PTCARENOTE ---
Assumed care of pt this am, she is alert calm and denies complaints. Rests quietly in bed and requests needs such as food, bathroom, meds. NSR -bradycardia on monitor, Lungs clear throughout and pulse ox 96%. 2 guards at bedside and 1 shackle intact
to left ankle, no wounds noted at ankle. Pt assisted OOB by staff and female guard for bathroom needs. Pt calm, cooperative and compliant all morning.
--- NOTE | 2025-04-22 13:51 | PTCARENOTE ---
pt discharged via wheelchair and accompanied by [facility]
== END 2025-04-22 13:44 | DRG 896 ==
LOC: IMU 16:15
PROVIDERS: Nurse Practitioner Family; Nurse Practitioner Gerontology; Student in an Organized Health Care Education/Training Program; ADMITTING PHYSICIAN Student in an Organized Health Care Education/Training Program; ATTENDING PHYSICIAN Hospitalist; CONSULT PHYSICIAN Internal Medicine; EMERGENCY PHYSICIAN Emergency Medicine
DX: F10.139 Alcohol abuse with withdrawal, unspecified (principal); G92.9 Unspecified toxic encephalopathy; I47.20 Ventricular tachycardia, unspecified; F11.23 Opioid dependence with withdrawal; H53.9 Unspecified visual disturbance; E87.6 Hypokalemia; I10 Essential (primary) hypertension; I16.0 Hypertensive urgency; F17.210 Nicotine dependence, cigarettes, uncomplicated; F14.929 Cocaine use, unspecified with intoxication, unspecified; D64.9 Anemia, unspecified; F15.129 Other stimulant abuse with intoxication, unspecified; F10.129 Alcohol abuse with intoxication, unspecified; R45.1 Restlessness and agitation; Z65.3 Problems related to other legal circumstances; Z88.0 Allergy status to penicillin
CPT/HCPCS: 80048; 80053; 80306; 80307; 81003; 81015; 82010; 82248; 82977; 83690; 83735; 83880; 84100; 84484; 84703; 85025; 85027; 87040; 87070; 93005; 93306; 96374; 96375; 99285